=== PATIENT | female | born 2000 | race Two or more races ===

== ENCOUNTER → 2024-05-07 | Outpatient (CLI) | payer BC, SELFPAY ==
[2024-05-07 13:49] LABS: Misc Send Out* See Sep Rpt
[2024-05-07 14:31] LABS: T4 (Thyroxine) 18.9 mcg/dL (4.5-10.9)
[2024-05-07 14:43] LABS: Free T4 (Free Thyroxine) 3.36 ng/dL (0.89-1.76); Thyroid Stimulating Hormone < 0.01 uIU/mL (0.55-4.78)
[2024-05-13 06:45] LABS: T3,Total* 294 ng/dL (76-181); Thyroid Peroxidase Antibodies* 111 IU/mL (<9)
== END | disposition home or self-care (01) ==
LOC: COPL 13:30
PROVIDERS: PCP Family Medicine; Referring Provider Internal Medicine; Visit Provider Internal Medicine
DX: E05.90 Thyrotoxicosis, unspecified without thyrotoxic crisis or storm (principal)
CPT/HCPCS: 36415; 83519; 84436; 84439; 84443; 84480; 86376

== ENCOUNTER → 2024-08-26 | Outpatient (CLI) | payer BC, SELFPAY ==
[2024-08-26 09:25] LABS: Basophils % (Auto) 1 % (0-2.5); Eosinophils # (Auto) 0.1 Thou/mm3 (0.0-0.5); Eosinophils % (Auto) 1 % (0-10); Hematocrit 39.4 % (36.0-46.0); Hemoglobin 13.3 g/dL (12.0-16.0); Immature Granulocytes % (Auto) 0 % (0-0); Lymphocytes # (Auto) 3.4 Thou/mm3 (1.0-4.8); Lymphocytes % (Auto) 52 % (10-50); Mean Corpuscular HGB Conc 33.8 g/dl (31.0-37.0); Mean Corpuscular Hemoglobin 27.1 pg (25.0-35.0); Mean Corpuscular Volume 80 fL (80-100); Monocytes # (Auto) 0.6 Thou/mm3 (0.0-0.8); Monocytes % (Auto) 8 % (0-12); Neutrophils # (Auto) 2.6 Thou/mm3 (1.8-7.7); Neutrophils % (Auto) 39 % (37-80); Nucleated Red Blood Cell % 0 /100 WBC (0); Platelet Count 335 Thou/mm3 (140-440); RDW Standard Deviation 38.4 fL (36.4-46.3); White Blood Count 6.6 Thou/mm3 (3.6-11.0)
[2024-08-26 09:51] LABS: Alanine Aminotransferase 18 U/L (10-49); Alkaline Phosphatase 91 U/L (46-116); Anion Gap 9 (7-16); Aspartate Amino Transferase 14 U/L (0-34); BUN/Creatinine Ratio 25 Ratio (12-20); Bilirubin,Total 0.7 mg/dL (0.3-1.2); Blood Urea Nitrogen 15 mg/dL (9-23); Calcium 9.7 mg/dL (8.3-10.6); Calcium (Corrected) 9.7 mg/dL (8.5-10.1); Carbon Dioxide 25.4 mMol/L (20.0-31.0); Cardiac Risk Estimate 2.5 RATIO (3.7-5.6); Chloride 109 mMol/L (98-107); Cholesterol 136 mg/dL (132-200); Creatinine (Component) 0.6 mg/dL (0.6-1.3); Free T4 (Free Thyroxine) 4.48 ng/dL (0.89-1.76); Glucose 91 mg/dL (74-106); HDL Cholesterol 54 mg/dL (40-60); LDL Cholesterol,Calculated 66 mg/dL (0-130); Osmolality,Calculated 285 (275-295); Sodium 143 mMol/L (136-145); Thyroid Stimulating Hormone < 0.01 uIU/mL (0.55-4.78); Triglycerides 81 mg/dL (30-150); eGFR > 60 See Note
[2024-08-26 10:02] LABS: Glucose Estimated Average 100 mg/dL (80-131); Hemoglobin A1C 5.1 % Hgb (4.8-6.0)
== END | disposition home or self-care (01) ==
LOC: COPL 08:42
PROVIDERS: PCP Internal Medicine; Referring Provider Internal Medicine; Visit Provider Internal Medicine
DX: E05.40 Thyrotoxicosis factitia without thyrotoxic crisis or storm (principal); R00.2 Palpitations
CPT/HCPCS: 36415; 80053; 80061; 83036; 84439; 84443; 85025

== ENCOUNTER → 2024-09-02 | Outpatient (CLI) | payer BC, SELFPAY ==
[2024-09-04 10:11] LABS: BVAG Candida Negative (Negative); Bacterial Vaginosis Markers Negative (Negative); Candida glabrata Negative (Negative); Candida krusei PCR Negative (Negative); Trichomonas Negative (Negative)
== END | disposition home or self-care (01) ==
LOC: SLDO 14:50
PROVIDERS: Referring Provider Physician Assistant Medical; Visit Provider Physician Assistant Medical
DX: A59.01 Trichomonal vulvovaginitis (principal); B37.89 Other sites of candidiasis; N76.0 Acute vaginitis
CPT/HCPCS: 81514

== ENCOUNTER 2024-10-10 21:12 | Emergency (ER) | payer BC, SELFPAY ==
[2024-10-10 21:13] VITALS: BMI 24.9
--- NOTE | 2024-10-10 21:19 | EKG_ITS ---
[facility] Test Date: 2024-10-10 Pat Name: BRANDIN GRAVES Department: Room: - Gender: Female [employer] Teacher: : 2000 Requested By: ED Temporary Provider Order Number: [id number] Reading MD: ED Temporary Provider Measurements Intervals Howard Rate: 98 P: 68 TX: 141 QRS: 14 QRSD: 80 T: 33 QT: 328 QTc: 419 Interpretive Statements SINUS RHYTHM Compared to ECG 02/24/2020 11:24:37 Sinus arrhythmia no longer present /store/[id number]/[id number]
[2024-10-10 21:52] VITALS: BP 132/90; PULSE 97; RESP 18; TEMP 38; O2SAT 100
[2024-10-10] MEDS: ACETAMINOPHEN 500 MG TABLET 1000 MG PO (22:11)
[2024-10-11 00:01] VITALS: BP 123/82; PULSE 84; RESP 16; TEMP 37.2; O2SAT 97
--- NOTE | 2024-10-11 03:00 | PD.EDCHEST ---
ED Chest Pain RME/HPI General Chief Complaint: Chest Pain Stated Complaint: LIGHT HEADED, CHEST PAIN AFTER TAKING TWO PROPRANO Time Seen by Provider: 10/10/24 22:05 Arrival date/time: 10/10/24 21:12 24F with history of hyperthyroidism (no recent dose changes on meds) presents to ED with CP and lightheadedness after accidentally taking 2 propranolol 80 mg pills about 5 hours apart. Patient usually only takes one pill per day. Patient denies URI symptoms, dysuria, ab pain, N/V, and WHARTON. Limitations: no limitations Related Data Previous Rx's ?Medication ?Instructions ?Recorded ibuprofen 800 mg tablet 800 mg PO TID PRN pain #30 tabs 03/16/19 Allergies Allergy/AdvReac Type Severity Reaction Status Date / Time No Known Allergies Allergy Verified 10/10/24 21:13 Review of Systems Review of Systems Systems Reviewed: All systems reviewed, normal except as documented Constitutional Constitutional: Reports system reviewed and no additional complaints, except as documented, Denies fever(s) and Denies headache(s) ENT Ears, Nose, Mouth, and Throat: Reports as per HPI, Denies disequilibrium, Denies headache(s) and Reports vertigo Cardiovascular Cardiovascular: Reports system reviewed and no additional complaints, except as documented, Reports as per HPI, Reports chest pain and Denies dyspnea Respiratory Respiratory: Reports system reviewed and no additional complaints, except as documented, Denies cough and Denies dyspnea Gastrointestinal Gastrointestinal: Reports system reviewed and no additional complaints, except as documented, Denies abdominal pain, Denies nausea and Denies vomiting Neurologic Neurologic: Reports system reviewed and no additional complaints, except as documented, Denies confusion, Denies disequilibrium, Denies headache(s) and Reports vertigo Psychiatric Psychiatric: Denies confusion Past Medical History Social History SMOKING STATUS: Never smoker ED Exam General Limitations: Present no limitations General appearance: Present alert and in no apparent distress Head Head exam: Present atraumatic Eye Eye exam: Present normal appearance, PERRL and EOMI ENT ENT exam: Present normal exam, normal oropharynx and mucous membranes moist Neck Neck exam: Present normal inspection, full ROM and trachea midline Chest Chest inspection: Present normal inspection and symmetric chest wall rise Respiratory Respiratory exam: Present normal lung sounds bilaterally Cardiovascular Cardiovascular exam: Present regular rate, normal rhythm and normal heart sounds Abdominal Exam Abdominal exam: Present soft and normal bowel sounds Extremities Exam Extremities exam: Present normal inspection and full ROM Back Exam Back exam: Present normal inspection and full ROM Neurological Exam Neurological exam: Present alert, oriented X3 and CN II-XII intact Psychiatric Psychiatric exam: Present normal affect and normal mood Skin Skin exam: Present warm, dry, intact and normal color Course Quality Measures none Orders Category Date Time Status Bedside COVID-19 Antigen Test NOW Care 10/10/24 22:05 Completed Bedside Influenza A&B Antigen Test NOW Care 10/10/24 22:05 Completed Blood glucose [Bedside Blood Glucose] NOW Care 10/10/24 21:28 Completed EKG (ED ONLY) *Do not use* NOW Care 10/10/24 21:19 Completed EKG (ED Only) Stat Exams 10/10/24 21:19 Draft Acetaminophen Tab [Tylenol ES Tab] Med 10/10/24 22:05 Discontinued 1,000 mg PO X1 ONE Vital Signs Vital signs: Vital Signs Temperature 100.4 F 10/10/24 21:52 Pulse Rate 97 10/10/24 21:52 Respiratory Rate 18 10/10/24 21:52 Blood Pressure 132/90 H 10/10/24 21:52 Pulse Oximetry (%) 100 10/10/24 21:52 Oxygen Delivery Method Room Air 10/10/24 21:52 O2 at 100% on RA and WNLs Chest Pain MDM Narrative MDM Narrative:: 24F with history of hyperthyroidism (no recent dose changes on meds) presents to ED with CP and lightheadedness after accidentally taking 2 propranolol 80 mg pills about 5 hours apart. Patient usually only takes one pill per day. Patient denies URI symptoms, dysuria, ab pain, N/V, and WHARTON. Physical exam reveals clear lungs and RRR. Normal WOB. Normal pupil response and EOM. Patient is interestingly mildly febrile, but does not appear toxic. Gait normal. EKG is NSR. BS 110. After 2 hours OBS, patient is feeling better. Likely mild overdose. Swabs neg. Unclear source of fever, but possibly due to BB vs hyperthyroidism vs early viral infection. Temp reduced with meds. Patient data External records reviewed:: [facility] previous records Clinical information provided by:: patient Social determinants that could affect healthcare access:: none Patient has the following chronic illnesses:: hyperthyroidism How is presenting disease/condition affected by chronic disease/condition?: exacerbated by Evaluation data The following diagnostics were reviewed and interpreted by me:: lab results and EKG tracing(s) Lab and/or radiology exams considered but not ordered:: ordered Interpretation Summary: above Medications / Prescriptions Medications or Prescriptions considered but not ordered:: ordered Medication administrations:: Medication Administration History Discontinued Medications Acetaminophen (Acetaminophen 500 Mg Tablet) 1,000 mg PO X1 ONE Stop: 10/10/24 22:06 Last Admin: 10/10/24 22:11 Dose: 1,000 mg Documented By: KF above Consultations Consultation(s) initiated? (list below): No Diagnosis Chest Pain Differential Diagnosis: fracture of rib, pneumothorax, stable angina, unstable angina pectoris, atypical chest pain, st elevation myocardial infarction, costochondritis, chest pain, biliary colic and other (adverse effect of BB) Most likely diagnosis given after review of the tests above:: adverse effect of BB Admission Indicated Admission indicated?: not indicated Admission Request Was there a request for admission?: No Disposition Plan Disposition Plan: Discharge Discharge Attestation Discharge Attestation: The patient and all family members were given an opportunity to ask questions and understood the discharge instructions. Discharge instructions specifically effects, indications for sooner follow up or return to the emergency department, and the expected course of current diagnosis. Patient condition: Stable Discharge Plan Plan Patient Disposition: HOME (Self Care) Disposition Comment: Stable Prescriptions/Referrals Prescriptions/Med Rec: No Action ibuprofen 800 mg tablet 800 mg PO TID PRN (Reason: pain) Qty: 30 0RF Referrals: Rodrigo Ware MD [Primary Care Provider] - In 1 week Problem List Clinical Impression: Adverse reaction to beta-catina Patient/Caregiver Discharge Instructions Education Materials: ED Drug Reaction, Other Additional Instructions: Please follow-up with PCP within 24-48 hours and return immediately if symptoms worsen. Print Language: Finnish Stand Alone Forms: Patient Portal Info Letter MAUREEN/ELLIOTT Supervising Physician BRADEN Supervising Physician: Dr. Hill
== END 2024-10-11 00:04 | disposition home or self-care (01) ==
PROVIDERS: Emergency Provider Emergency Medicine; PCP Family Medicine
DX: R07.9 Chest pain, unspecified (principal); R42 Dizziness and giddiness; T44.7X5A Adverse effect of beta-adrenoreceptor antagonists, initial encounter
CPT/HCPCS: 87400; 87811; 93005; 99283; A9270

== ENCOUNTER → 2024-10-11 | Outpatient (CLI) | payer BC, SELFPAY ==
[2024-10-11 15:41] LABS: T4 (Thyroxine) 21.6 mcg/dL (4.5-10.9)
[2024-10-11 15:43] LABS: Free T4 (Free Thyroxine) 4.89 ng/dL (0.89-1.76); Thyroid Stimulating Hormone < 0.01 uIU/mL (0.55-4.78)
[2024-10-18 06:58] LABS: T3,Total* 327 ng/dL (76-181); TSI, Thyroid Stimulating Ig* 209 % baseline (<140); Thyroid Peroxidase Antibodies* 281 IU/mL (<9)
== END | disposition home or self-care (01) ==
LOC: COPL 13:57
PROVIDERS: PCP Family Medicine; Referring Provider Internal Medicine; Visit Provider Internal Medicine
DX: E05.90 Thyrotoxicosis, unspecified without thyrotoxic crisis or storm (principal)
CPT/HCPCS: 36415; 84436; 84439; 84443; 84445; 84480; 86376

== ENCOUNTER → 2025-01-10 | Outpatient (CLI) | payer BC, SELFPAY ==
[2025-01-11 10:20] LABS: BVAG Candida Positive (Negative); Bacterial Vaginosis Markers Positive (Negative); Candida glabrata Negative (Negative); Candida krusei PCR Negative (Negative); Trichomonas Negative (Negative)
== END | disposition home or self-care (01) ==
LOC: SLDO 15:02
PROVIDERS: Referring Provider Physician Assistant Medical; Visit Provider Physician Assistant Medical
DX: A59.01 Trichomonal vulvovaginitis (principal); B37.89 Other sites of candidiasis; N76.0 Acute vaginitis; R10.2 Pelvic and perineal pain
CPT/HCPCS: 81514; 87077; 87086; 87186

== ENCOUNTER → 2025-03-24 | Outpatient (CLI) | payer BC, SELFPAY ==
[2025-03-24 11:47] LABS: Beta HCG,Quantitative < 1 mIU/mL (<5.0)
[2025-03-24 12:03] LABS: Hepatitis B Surface Antigen Non Reactive (Non React)
[2025-03-24 12:09] LABS: Syphilis Nonreactive (Nonreactive)
[2025-03-25 09:53] LABS: BVAG Candida Negative (Negative); Bacterial Vaginosis Markers Positive (Negative); Candida glabrata Negative (Negative); Candida krusei PCR Negative (Negative); Trichomonas Negative (Negative)
[2025-03-26 19:49] LABS: HCV RNA, PCR <15 NOT DETECTED IU/mL
[2025-03-27 06:30] LABS: HCV RNA, PCR Log IU <1.18 NOT DETECTED Log IU/mL; HIV Ag/Ab, 4th Gen NON-REACTIVE
== END | disposition home or self-care (01) ==
PROVIDERS: PCP Internal Medicine; Referring Provider Physician Assistant Medical; Visit Provider Physician Assistant Medical
DX: Z11.3 Encounter for screening for infections with a predominantly sexual mode of transmission (principal); R10.2 Pelvic and perineal pain; B37.89 Other sites of candidiasis; N76.0 Acute vaginitis; A59.01 Trichomonal vulvovaginitis
CPT/HCPCS: 36415; 81514; 84702; 86780; 87086; 87340; 87389; 87522

== ENCOUNTER → 2025-03-31 | Outpatient (CLI) | payer BC, SELFPAY ==
[2025-03-31 11:50] LABS: T4 (Thyroxine) 24.9 mcg/dL (4.5-10.9)
[2025-03-31 11:53] LABS: Free T4 (Free Thyroxine) 6.98 ng/dL (0.89-1.76); Thyroid Stimulating Hormone < 0.01 uIU/mL (0.55-4.78)
[2025-04-07 06:26] LABS: T3,Total* 434 ng/dL (76-181); TSI, Thyroid Stimulating Ig* 356 % baseline (<140)
== END | disposition home or self-care (01) ==
LOC: COPL 10:44
PROVIDERS: PCP Internal Medicine; Referring Provider Internal Medicine; Visit Provider Internal Medicine
DX: E05.90 Thyrotoxicosis, unspecified without thyrotoxic crisis or storm (principal)
CPT/HCPCS: 36415; 84436; 84439; 84443; 84445; 84480

== ENCOUNTER → 2025-04-14 | Outpatient (CLI) | payer BC, SELFPAY ==
[2025-04-14 11:57] LABS: Collection Type, Urine Clean Catch
[2025-04-14 12:16] LABS: Basophils # (Auto) 0.0 Thou/mm3 (0.0-0.2); Basophils % (Auto) 0 % (0-2.5); Eosinophils # (Auto) 0.0 Thou/mm3 (0.0-0.5); Eosinophils % (Auto) 0 % (0-10); Hematocrit 39.0 % (36.0-46.0); Hemoglobin 13.3 g/dL (12.0-16.0); Immature Granulocytes Auto 0.03 Thou/mm3 (0.00-0.00); Lymphocytes # (Auto) 3.2 Thou/mm3 (1.0-4.8); Lymphocytes % (Auto) 41 % (10-50); Mean Corpuscular HGB Conc 34.1 g/dl (31.0-37.0); Mean Corpuscular Hemoglobin 27.4 pg (25.0-35.0); Mean Corpuscular Volume 80 fL (80-100); Monocytes # (Auto) 0.6 Thou/mm3 (0.0-0.8); Monocytes % (Auto) 7 % (0-12); Neutrophils # (Auto) 4.1 Thou/mm3 (1.8-7.7); Neutrophils % (Auto) 52 % (37-80); Nucleated Red Blood Cell # 0.00 Thou/mm3 (0.00-0.00); Nucleated Red Blood Cell % 0 /100 WBC (0); Platelet Count 310 Thou/mm3 (140-440); RDW Standard Deviation 40.0 fL (36.4-46.3); Red Blood Count 4.85 Miln/mm3 (4.00-5.20); White Blood Count 8.0 Thou/mm3 (3.6-11.0)
[2025-04-14 12:20] LABS: Creatinine,Random Urine 202 mg/dL (30-125); Protein Total, Random Urine 25 mg/dL (1-14)
[2025-04-14 12:23] LABS: T4 (Thyroxine) 14.7 mcg/dL (4.5-10.9)
[2025-04-14 12:35] LABS: Albumin, Serum 4.4 gm/dL (3.5-5.0); Anion Gap 9 (7-16); BUN/Creatinine Ratio 20 Ratio (12-20); Blood Urea Nitrogen 10 mg/dL (9-23); Calcium 9.6 mg/dL (8.3-10.6); Calcium (Corrected) 9.6 mg/dL (8.5-10.1); Carbon Dioxide 26.3 mMol/L (20.0-31.0); Chloride 105 mMol/L (98-107); Creatinine (Component) 0.5 mg/dL (0.6-1.3); Free T4 (Free Thyroxine) 3.01 ng/dL (0.89-1.76); Glucose 93 mg/dL (74-106); Osmolality,Calculated 278 (275-295); Phosphorous 3.3 mg/dL (2.4-5.1); Potassium 3.9 mMol/L (3.4-5.1); Sodium 140 mMol/L (136-145); Thyroid Stimulating Hormone < 0.01 uIU/mL (0.55-4.78); eGFR > 60 See Note
[2025-04-14 13:19] LABS: Bilirubin,Urine Negative (Negative); Blood,Urine Negative (Negative); Clarity,Urine Clear (Clear/Hazy); Color,Urine Yellow (Lt Yel-Yel); Glucose, Urine Negative (Negative); Ketones,Urine Negative (Negative); Leukocyte Esterase,Urine Positive (Negative); Nitrite,Urine Negative (Negative); PH,Urine 6.0 (5.0-7.0); Protein,Urine Trace (Neg - Trace); RBC,Urine 6 /hpf (0-3); Specific Gravity,Urine 1.027 (1.001-1.035); Squamous Epithelial Cell,Urine 1 /hpf (0-5); Urobilinogen,Urine Negative mg/dL (0.0-1.0); WBC,Urine 4 /hpf (0-5)
[2025-04-18 06:44] LABS: T3,Total* 143 ng/dL (76-181); Thyrotropin-Binding Inhib Ig* 9.17 IU/L (< OR = 2.00)
== END | disposition home or self-care (01) ==
PROVIDERS: PCP Internal Medicine; Referring Provider Internal Medicine; Visit Provider Internal Medicine
DX: R31.9 Hematuria, unspecified (principal); E55.9 Vitamin D deficiency, unspecified; E05.90 Thyrotoxicosis, unspecified without thyrotoxic crisis or storm
CPT/HCPCS: 36415; 80069; 81001; 82570; 83519; 84156; 84436; 84439; 84443; 84480; 85025

== ENCOUNTER → 2025-05-07 | Outpatient (CLI) | payer BC, SELFPAY ==
[2025-05-08 09:12] LABS: BVAG Candida Positive (Negative); Bacterial Vaginosis Markers Positive (Negative); Candida glabrata Negative (Negative); Candida krusei PCR Negative (Negative); Trichomonas Negative (Negative)
== END | disposition home or self-care (01) ==
PROVIDERS: Referring Provider Physician Assistant Medical; Visit Provider Physician Assistant Medical
DX: B37.89 Other sites of candidiasis (principal); N76.0 Acute vaginitis; A59.01 Trichomonal vulvovaginitis
CPT/HCPCS: 81514

== ENCOUNTER → 2025-06-05 | Outpatient (CLI) | payer BC, SELFPAY ==
[2025-06-06 12:02] LABS: BVAG Candida Negative (Negative); Bacterial Vaginosis Markers Negative (Negative); Candida glabrata Negative (Negative); Candida krusei PCR Negative (Negative); Trichomonas Negative (Negative)
== END | disposition home or self-care (01) ==
LOC: SLDO 14:23
PROVIDERS: Referring Provider Physician Assistant Medical; Visit Provider Physician Assistant Medical
DX: B37.89 Other sites of candidiasis (principal); N76.0 Acute vaginitis; A59.01 Trichomonal vulvovaginitis
CPT/HCPCS: 81514